=== PATIENT | male | born 1970 | race Caucasian/White ===

== ENCOUNTER 2021-08-02 04:51 | Inpatient (IN) | payer BC, OTHER ==
[~2021-08-02] VITALS: Ht 185.4 cm; Wt 151.3 kg
[2021-08-02 04:57] VITALS: BP 140/104
[2021-08-02] MEDS ORDERED: SERTRALINE HCL100 MG PO (05:02)
[2021-08-02] MEDS ORDERED: NORVASC5 MG PO (05:03)
[2021-08-02] MEDS ORDERED: BENICAR40 MG PO (05:03)
[2021-08-02] MEDS ORDERED: LOSARTAN-HCTZ1 EAC3 PO (05:03)
[2021-08-02] MEDS ORDERED: HYDROCHLOROTH12.5 M2 PO (05:04)
[2021-08-02 05:51] LABS: ABSOLUTE NEUTROPHILS 3.1 thou/uL (1.4-8.2); BASOPHILS 0.4 % (0.0-2.0); EOSINOPHILS 2.9 % (0.0-3.0); HEMATOCRIT 42.9 % (42.0-52.0); HEMOGLOBIN 14.7 gm/dL (14.0-18.0); LYMPHOCYTES 31.3 % (24.0-44.0); MCH 29.9 pg (26.0-34.0); MCHC 34.3 g/dL (28.0-37.0); MCV 87.1 fL (80.0-100.0); PLATELET COUNT 204 thou/uL (150-400); POLYS 56.4 % (36.0-66.0); RBC 4.92 mil/uL (4.50-6.00); RDW 12.8 % (10.5-14.5); WBC 5.5 thou/uL (4.0-11.0)
[2021-08-02 05:58] LABS: CALCIUM 9.1 mg/dL (8.5-10.1); CREATININE 1.1 mg/dL (0.7-1.3)
[2021-08-02 06:04] LABS: APTT 28.9 Seconds (24.5-32.8); INR 0.91
[2021-08-02 06:07] LABS: ALBUMIN 3.4 g/dL (3.4-5.0); TOTAL BILIRUBIN 0.2 mg/dL (0.2-1.0); TOTAL PROTEIN 7.7 g/dL (6.4-8.2)
[2021-08-02 09:35] VITALS: BP 141/81
[2021-08-02 15:16] LABS: CHOLESTEROL 183 mg/dL (<200); HDL CHOLESTEROL 31 mg/dL (>40); LDL CHOLESTEROL 108 mg/dL (<100); TC:HDL 5.9 Ratio (Not establshd); TRIGLYCERIDE 223 mg/dL (<150); VLDL 45 mg/dL (<40)
[2021-08-02 17:25] VITALS: BP 157/81
--- NOTE | 2021-08-02 18:32 | NUR ---
PATIENT ARRIVED FROM ER AND SETTLED INTO BED. TELE PACK PLACED ON PATIENT. ADMISSION EDUCATION AND HISTORY COMPLETED. DINNER ARRIVED AND INSULIN GIVEN. SHOES FOUND IN ER BROUGHT BACK BY ER NURSE. MP
[2021-08-02] MEDS ORDERED: BUPROPION XL300 MG PO (19:28)
[2021-08-02] MEDS ORDERED: CRESTOR5 MG PO (19:28)
[2021-08-02 19:57] VITALS: BP 120/78
[2021-08-02 23:21] VITALS: BP 129/86
[2021-08-03 04:27] LABS: HEMATOCRIT 41.9 % (42.0-52.0); MCH 29.8 pg (26.0-34.0); MCHC 33.4 g/dL (28.0-37.0); RBC 4.7 mil/uL (4.50-6.00); RDW 12.7 % (10.5-14.5); WBC 5.1 thou/uL (4.0-11.0)
[2021-08-03 04:41] LABS: CREATININE 1.1 mg/dL (0.7-1.3); POTASSIUM 3.7 mmol/L (3.5-5.1)
[2021-08-03 05:23] VITALS: BP 137/96
[2021-08-03 05:36] LABS: GLYCOHEMOGLOBIN (HGB A1C) 7.9 % (4.8-5.6)
[2021-08-03 07:43] VITALS: BP 128/85
[2021-08-03 11:21] VITALS: BP 133/80
[2021-08-03] MEDS ORDERED: BAYER CHEWABLE81 MG PO (13:26)
[2021-08-03] MEDS ORDERED: CARDIZEM CD120 MG PO (13:26)
[2021-08-03] MEDS ORDERED: METOPROLOL TART25 MG PO (13:26)
[2021-08-03] MEDS ORDERED: LIPITOR40 MG PO (13:26)
[2021-08-03] MEDS ORDERED: METFORMIN HCL500 M3 PO (13:26)
[2021-08-03] MEDS ORDERED: OTHER MISCELL (13:39)
[2021-08-03 14:03] VITALS: BP 133/80
--- NOTE | 2021-08-03 14:29 | NUR ---
NO FALLS OR INJURIES THIS SHIFT. PATIENT DISCHARGED HOME. HOW TO CHECK BLOOD SUGAR EDUCATION COMPLETED. PATIENT HAS GATHERED BELONGINGS AND WILL BE WHEELED OUT BY STAFF. PATIENT PROGRESSED TOWARD POC.
--- NOTE | 2021-08-04 07:37 | EKG ---
[address] [place] [employer] [place] [address] ELECTROCARDIOGRAM REPORT Name: DREW ENGEL Room #: 208-P [facility] IN M.R.#: [id number] Admission: 08/02/21 Attend Phys: Kenia Posey MD Discharge: 08/03/21 Date of : 68 Report #: [id number] 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 : 1970 Requested By: Peter Medina Order Number: [id number] MD: Juan Pablo Eagle Measurements Intervals [place] Rate: 148 P: MD: QRS: 26 QRSD: 113 T: -76 QT: 291 QTc: 457 Interpretive Statements Atrial flutter with predominant 2:1 AV block Incomplete right bundle branch block Abnormal R-wave progression, late transition Nonspecific repol abnormality, lateral leads Compared to ECG 08/02/2021 05:18:50 2:1 AV block now present Atrial fibrillation no longer present Left bundle-branch block no longer present Myocardial infarct finding no longer present Electronically Signed On 08-04-2021 7:36:58 [employer] SALES CONSULTANT by Juan Pablo Eagle [email or web address] <ELECTRONICALLY SIGNED> By: Juan Pablo Eagle MD, FACC 08/04/21 0736 8 8 Juan Pablo Eagle MD, [facility] /EPI
--- NOTE | 2021-08-04 07:37 | EKG ---
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 : 1970 Requested By: Lulú Liu Order Number: [id number] MD: Juan Pablo Eagle Measurements Intervals [place] Rate: 66 P: -2 W[place]: 187 QRS: 41 QRSD: 107 T: 66 QT: 423 QTc: 444 Interpretive Statements Sinus rhythm Consider left atrial enlargement Baseline wander in lead(s) V2 Compared to ECG 08/02/2021 05:19:45 Atrial flutter no longer present 2:1 AV block no longer present Incomplete right bundle-branch block no longer present Early repolarization no longer present Electronically Signed On 08-04-2021 7:37:19 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
== END 2021-08-03 15:10 | disposition home or self-care (01) | DRG 309 ==
LOC: ER 04:51 → EROBS 08:39 → 2N 17:35
PROVIDERS: Emergency Medicine; ADMIT Hospitalist; ATTEND Hospitalist
DX: I48.91 Unspecified atrial fibrillation (principal); I20.0 Unstable angina; Z68.41 Body mass index [BMI] 40.0-44.9, adult; E83.42 Hypomagnesemia; E66.01 Morbid (severe) obesity due to excess calories; F10.10 Alcohol abuse, uncomplicated; E11.65 Type 2 diabetes mellitus with hyperglycemia; E78.5 Hyperlipidemia, unspecified; F32.9 Major depressive disorder, single episode, unspecified; F41.9 Anxiety disorder, unspecified; Z71.41 Alcohol abuse counseling and surveillance of alcoholic; Z20.822 Contact with and (suspected) exposure to COVID-19
CPT/HCPCS: 10081

== ENCOUNTER → 2021-08-05 | Outpatient (CLI) | payer BC, OTHER ==
[~2021-08-05] MED LIST: BAYER CHEWABLE81 MG PO; BENICAR40 MG PO; BUPROPION XL300 MG PO; CARDIZEM CD120 MG PO; CRESTOR5 MG PO; HYDROCHLOROTH12.5 M2 PO; LIPITOR40 MG PO; LOSARTAN-HCTZ1 EAC3 PO; METFORMIN HCL500 M3 PO; METOPROLOL TART25 MG PO; NORVASC5 MG PO; OTHER MISCELL; SERTRALINE HCL100 MG PO
== END ==
LOC: SJCVCIMAG 10:04
PROVIDERS: ATTEND Internal Medicine
DX: I08.8 Other rheumatic multiple valve diseases (principal); I48.91 Unspecified atrial fibrillation; R07.9 Chest pain, unspecified; E78.5 Hyperlipidemia, unspecified; I10 Essential (primary) hypertension; E11.9 Type 2 diabetes mellitus without complications; R06.00 Dyspnea, unspecified; Z79.899 Other long term (current) drug therapy; Z88.8 Allergy status to other drugs, medicaments and biological substances